=== PATIENT | male | born 2005 | race Two or more races ===

== ENCOUNTER 2023-08-24 17:11 | Emergency (ER) | payer SELFPAY ==
[~2023-08-24] VITALS: Ht 185.4 cm; Wt 98.0 kg
[2023-08-24 18:10] VITALS: BP 119/79; PULSE 78; RESP 16; O2SAT 97
== END 2023-08-24 22:09 | disposition left against medical advice (07) ==
LOC: EDBD 17:11 → ER 17:11
DX: R51.9 Headache, unspecified (principal); Z53.21 Procedure and treatment not carried out due to patient leaving prior to being seen by health care provider